=== PATIENT | female | born 1995 | race Hispanic/Latino ===

== ENCOUNTER 2019-04-24 14:05 | Emergency (ER) | payer OTHER ==
[2019-04-24 14:50] LABS: APPEARANCE,URINE Clear (CLEAR); BILIRUBIN,URINE Negative (NEGATIVE); COLOR,URINE Yellow (YELLOW); GLUCOSE, URINE (UA) Negative (NEGATIVE); KETONES,URINE Negative (NEGATIVE); LEUKOCYTE ESTERASE ,URINE Negative (NEGATIVE); NITRATE,URINE Negative (NEGATIVE); OCCULT BLOOD,URINE Trace (NEGATIVE); PROTEIN,URINE Negative (NEGATIVE); UROBILINOGEN,URINE 0.2 mg/dL (0.2-1.0)
[2019-04-24 14:51] LABS: HCG,QUAL RESULT NEGATIVE (NEGATIVE)
[2019-04-24 15:12] LABS: BACTERIA,URINE None Seen /HPF (None Seen); MUCUS,URINE None Seen LPF (None Seen); WBC,URINE 0-1 /HPF (0-1)
== END 2019-04-24 15:35 | disposition home or self-care (01) ==
LOC: EDH 14:05
DX: S33.5XXA Sprain of ligaments of lumbar spine, initial encounter (principal); X58.XXXA Exposure to other specified factors, initial encounter; Y93.89 Activity, other specified; Y92.89 Other specified places as the place of occurrence of the external cause; Y99.8 Other external cause status
CPT/HCPCS: 71046; 81001; 81025

== ENCOUNTER 2019-05-14 11:10 | Emergency (ER) | payer OTHER | END 2019-05-14 11:45 | disposition home or self-care (01) | LOC: EDH 11:10 | DX: B00.89 Other herpesviral infection (principal) ==

== ENCOUNTER → 2020-01-26 | Outpatient (CLI) | payer OTHER | END | disposition home or self-care (01) | LOC: RAH 12:56 | PROVIDERS: ATTEND Obstetrics & Gynecology | DX: Z34.01 Encounter for supervision of normal first pregnancy, first trimester (principal); Z3A.14 14 weeks gestation of pregnancy | CPT/HCPCS: 76801 ==

== ENCOUNTER → 2020-02-23 | Outpatient (CLI) | payer OTHER ==
[2020-02-23 10:06] LABS: BASOPHILS % (AUTO) 0.2 % (0.0-5.0); EOSINOPHILS % (AUTO) 0.9 % (0.0-8.0); HEMATOCRIT 35.6 % (36-48); LYMPHOCYTES % (AUTO) 26.9 % (21.0-51.0); MEAN CORPUSCULAR HEMOGLOBIN 28.6 pg (27.0-33.0); MEAN CORPUSCULAR HGB CONC 34.3 g/dL (32.0-36.0); MEAN CORPUSCULAR VOLUME 83.4 fL (79-99); MONOCYTES % (AUTO) 4.3 % (3.0-13.0); NEUTROPHILS % (AUTO) 67.5 % (40.0-77.0); PLATELET COUNT (AUTO) 180 K/uL (130-400); RED BLOOD CELL COUNT(AUTO) 4.27 MIL/uL (4.00-5.50); RED CELL DISTRIBUTION WIDTH 12.3 % (11.0-15.5); WHITE BLOOD COUNT (AUTO) 6.5 K/uL (4.8-10.8)
[2020-02-23 10:12] LABS: AMPHET/METH SCREEN,URINE NEGATIVE (NEGATIVE); BARBITURATE SCREEN, URINE NEGATIVE (NEGATIVE); BENZODIAZEPINES SCREEN,URINE NEGATIVE (NEGATIVE); CANNABINOID SCREEN,URINE NEGATIVE (NEGATIVE); COCAINE SCREEN,URINE NEGATIVE (NEGATIVE); OPIATE SCREEN,URINE NEGATIVE (NEGATIVE); PHENCYCLIDINE SCREEN,URINE NEGATIVE (NEGATIVE)
[2020-02-23 11:01] LABS: RAPID PLASMA REAGIN NONREACTIVE (NONREACTIVE)
== END | disposition home or self-care (01) ==
LOC: RAH 08:11
PROVIDERS: ATTEND Obstetrics & Gynecology
DX: Z36.3 Encounter for antenatal screening for malformations (principal); O00.01 Abdominal pregnancy with intrauterine pregnancy; Z3A.12 12 weeks gestation of pregnancy
CPT/HCPCS: 36415; 76801; 80305; 85025; 86592; 86701; 86762; 86850; 86900; 86901; 87088; 87390

== ENCOUNTER 2020-02-27 09:21 | Emergency (ER) | payer OTHER ==
[2020-02-27 09:51] LABS: BASOPHILS % (AUTO) 0.3 % (0.0-5.0); EOSINOPHILS % (AUTO) 0.9 % (0.0-8.0); HEMATOCRIT 36.9 % (36-48); LYMPHOCYTES % (AUTO) 25.4 % (21.0-51.0); MEAN CORPUSCULAR HEMOGLOBIN 28.7 pg (27.0-33.0); MONOCYTES % (AUTO) 4.8 % (3.0-13.0); NEUTROPHILS % (AUTO) 68.3 % (40.0-77.0); PLATELET COUNT (AUTO) 202 K/uL (130-400); RED CELL DISTRIBUTION WIDTH 12.1 % (11.0-15.5); WHITE BLOOD COUNT (AUTO) 7.6 K/uL (4.8-10.8)
[2020-02-27 10:13] LABS: CREATININE 0.7 mg/dL (0.5-1.5); POTASSIUM 3.8 mmol/L (3.5-5.1)
[2020-02-27 10:27] LABS: APPEARANCE,URINE Clear (CLEAR); BILIRUBIN,URINE Negative (NEGATIVE); COLOR,URINE Yellow (YELLOW); GLUCOSE, URINE (UA) Negative (NEGATIVE); KETONES,URINE Negative (NEGATIVE); LEUKOCYTE ESTERASE ,URINE Negative (NEGATIVE); NITRATE,URINE Negative (NEGATIVE); OCCULT BLOOD,URINE Nonhemolyzed Trace (NEGATIVE); PH,URINE 7.5 (5.0-8.0); PROTEIN,URINE Negative (NEGATIVE)
[2020-02-27 10:47] LABS: ALBUMIN 3.2 g/dL (3.5-5.0); BILIRUBIN,TOTAL 0.3 mg/dL (0.2-1.0)
[2020-02-27 10:52] LABS: BACTERIA,URINE None Seen /HPF (None Seen); RBC,URINE 0-1 /HPF (0-1); WBC,URINE None Seen /HPF (0-1)
== END 2020-02-27 11:46 | disposition home or self-care (01) ==
LOC: EDH 09:21
DX: O20.0 Threatened abortion (principal); Z79.899 Other long term (current) drug therapy; Z87.891 Personal history of nicotine dependence; Z3A.13 13 weeks gestation of pregnancy
CPT/HCPCS: 36415; 76801; 80053; 81001; 84702; 85025

== ENCOUNTER 2020-08-22 01:24 | Inpatient (IN) | payer OTHER ==
[~2020-08-22] VITALS: Ht 165.1 cm; Wt 90.7 kg
[2020-08-22] MEDS ORDERED: LACTATED RINGERS 1000ML 1,000 ML IV SCH (02:45)
[2020-08-22] MEDS ORDERED: NALOXONE HCL 0.4 MG/1 ML ML IV PRN (03:15)
[2020-08-22] MEDS ORDERED: EPHEDRINE SULFATE 50 MG/ML AMPULE IVP PRN (03:15)
[2020-08-22] MEDS ORDERED: OXYTOCIN-LR 20 UNITS/1000 ML 1,000 ML IV SCH (03:15)
[2020-08-22] MEDS ORDERED: BUTORPHANOL TARTRATE 2 MG/ML IVP PRN (03:15)
[2020-08-22] MEDS ORDERED: LACTATED RINGERS 500 ML 500 ML IV PRN (03:15)
[2020-08-22] MEDS ORDERED: BUTORPHANOL TARTRATE 2 MG/ML ONE (03:16)
[2020-08-22 03:47] LABS: HEMATOCRIT 35.2 % (36-48); MEAN CORPUSCULAR HEMOGLOBIN 28.6 pg (27.0-33.0); MEAN CORPUSCULAR HGB CONC 33.8 g/dL (32.0-36.0); MEAN CORPUSCULAR VOLUME 84.6 fL (79-99); RED BLOOD CELL COUNT(AUTO) 4.16 MIL/uL (4.00-5.50); RED CELL DISTRIBUTION WIDTH 13.9 % (11.0-15.5); WHITE BLOOD COUNT (AUTO) 9.9 K/uL (4.8-10.8)
[2020-08-22 03:48] VITALS: BP 119/72
[2020-08-22] MEDS ORDERED: FENTANYL CITRATE PF 50 MCG/1 ML 2ML VIAL ONE ×2 (06:20→07:42)
[2020-08-22 08:12] LABS: RAPID PLASMA REAGIN NONREACTIVE (NONREACTIVE)
[2020-08-22] MEDS ORDERED: LANOLIN 30GM OINTMENT TP PRN (11:15)
[2020-08-22] MEDS ORDERED: ACETAMINOPHEN-CODEINE 300/30MG TAB PO PRN (11:15)
[2020-08-22] MEDS ORDERED: DIPH,PERTUSS(ACELL),TET VAC/PF 0.5 ML VIAL IM PRN (11:15)
[2020-08-22] MEDS ORDERED: ACETAMINOPHEN 325 MG TAB PO PRN (11:15)
[2020-08-22] MEDS ORDERED: WITCH HAZEL 1 PAD TP PRN (11:15)
[2020-08-22] MEDS ORDERED: MEASLES/MUMPS/RUBELLA VACCINE, LIVE 0.5 ML/VIAL SQ PRN (11:15)
[2020-08-22] MEDS ORDERED: BENZOCAINE/LANOLIN/ALOE VERA 60 ML AEROSOL TP PRN (11:15)
[2020-08-22 14:21] VITALS: BP 111/65
[2020-08-22] MEDS: IBUPROFEN 600 MG TABLET PO PRN ×2 (14:30→22:04)
[2020-08-22 16:00] VITALS: BP 119/81
[2020-08-22] MEDS ORDERED: PREN1TAB63 PO (18:39)
[2020-08-22] MEDS ORDERED: VALA500T PO (18:39)
[2020-08-22 20:35] VITALS: BP 116/61
[2020-08-22] MEDS: DOCUSATE SODIUM 100 MG CAP PO SCH (21:09)
[2020-08-23 00:18] VITALS: BP 102/67
[2020-08-23 04:22] VITALS: BP 115/68
[2020-08-23 07:17] VITALS: BP 106/69
[2020-08-23] MEDS: DOCUSATE SODIUM 100 MG CAP PO SCH (08:26)
[2020-08-23] MEDS: IBUPROFEN 600 MG TABLET PO PRN (08:27)
[2020-08-23 11:35] VITALS: BP 108/60
[2020-08-23 16:23] VITALS: BP 133/80
[2020-08-24 05:12] LABS: HEPATITIS Bs ANTIGEN SCREEN P Negative (Negative)
== END 2020-08-23 16:25 | disposition home or self-care (01) | DRG 807 ==
LOC: EDH 01:40 → UNDOADMOB 01:53 → LDH 01:53 → INTOOBSV 01:53 → OBSVTOIN 01:53 → LDH 03:00 → OBSVTOIN 03:00 → WSH 14:10
PROVIDERS: ADMIT Obstetrics & Gynecology; ATTEND Obstetrics & Gynecology
PROC: 10E0XZZ Delivery of Products of Conception, External Approach (ICD-10-PCS; principal; 2020-08-22)
PROC: 0KQM0ZZ Repair Perineum Muscle, Open Approach (ICD-10-PCS; 2020-08-22)
PROC: 0UQMXZZ Repair Vulva, External Approach (ICD-10-PCS; 2020-08-22)
PROC: 3E0R3BZ Introduction of Anesthetic Agent into Spinal Canal, Percutaneous Approach (ICD-10-PCS; 2020-08-22)
PROC: 00HU33Z Insertion of Infusion Device into Spinal Canal, Percutaneous Approach (ICD-10-PCS; 2020-08-22)
DX: O70.1 Second degree perineal laceration during delivery (principal); Z37.0 Single live birth; Z3A.38 38 weeks gestation of pregnancy
CPT/HCPCS: 36415; 85027; 86592; 86701; 86850; 86900; 86901; 87340; 87390; A4314; G0378; J0595; J2590; J3010; J7120

== ENCOUNTER 2020-08-25 15:51 | Emergency (ER) | payer OTHER ==
[~2020-08-25] VITALS: Ht 165.1 cm; Wt 86.2 kg
[~2020-08-25 15:51] MED LIST: PREN1TAB63 PO; VALA500T PO
[2020-08-25 16:16] VITALS: BP 110/68
[2020-08-25 17:28] LABS: BASOPHILS % (AUTO) 0.1 % (0.0-5.0); EOSINOPHILS % (AUTO) 2.3 % (0.0-8.0); HEMATOCRIT 31.7 % (36-48); MEAN CORPUSCULAR HEMOGLOBIN 29.1 pg (27.0-33.0); MEAN CORPUSCULAR HGB CONC 32.8 g/dL (32.0-36.0); MEAN CORPUSCULAR VOLUME 88.5 fL (79-99); MONOCYTES % (AUTO) 5.8 % (3.0-13.0); NEUTROPHILS % (AUTO) 66.4 % (40.0-77.0); PLATELET COUNT (AUTO) 155 K/uL (130-400); RED BLOOD CELL COUNT(AUTO) 3.58 MIL/uL (4.00-5.50); RED CELL DISTRIBUTION WIDTH 13.8 % (11.0-15.5); WHITE BLOOD COUNT (AUTO) 7.3 K/uL (4.8-10.8)
[2020-08-25 17:36] VITALS: BP 122/72
[2020-08-25 17:40] LABS: CREATININE 0.7 mg/dL (0.5-1.5)
[2020-08-25 17:41] LABS: INR 0.94 (0.85-1.15); PROTHROMBIN TIME 10.3 SEC (9.6-11.6)
[2020-08-25 17:42] LABS: PARTIAL THROMBOPLASTIN TIME 24.7 SEC (26.3-35.5)
[2020-08-25 17:44] LABS: ALBUMIN 2.5 g/dL (3.5-5.0); BILIRUBIN,TOTAL 0.2 mg/dL (0.2-1.0); MAGNESIUM 1.5 mg/dL (1.80-2.40); TOTAL PROTEIN, SERUM 6.1 g/dL (6.0-8.3)
[2020-08-25 17:53] LABS: APPEARANCE,URINE Clear (CLEAR); BILIRUBIN,URINE Negative (NEGATIVE); COLOR,URINE Yellow (YELLOW); GLUCOSE, URINE (UA) Negative (NEGATIVE); KETONES,URINE Negative (NEGATIVE); LEUKOCYTE ESTERASE ,URINE Small (NEGATIVE); NITRATE,URINE Negative (NEGATIVE); OCCULT BLOOD,URINE Small (NEGATIVE); PH,URINE 5.5 (5.0-8.0); PROTEIN,URINE Negative (NEGATIVE)
[2020-08-25 17:58] VITALS: BP 113/79
[2020-08-25] MEDS ORDERED: PROCHLORPERAZINE EDISYLATE 10 MG/2 ML VIAL IV SCH (18:15)
[2020-08-25 18:24] LABS: BACTERIA,URINE Rare /HPF (None Seen); SQUAMOUS EPITHELIAL CELL,UR Rare /HPF (0-2)
[2020-08-25] MEDS ORDERED: MAGNESIUM 2GM PREMIX 50ML 25 ML IV SCH (18:30)
[2020-08-25 18:48] VITALS: BP 118/61
[2020-08-25 19:30] VITALS: BP 113/72
== END 2020-08-25 19:59 | disposition home or self-care (01) ==
LOC: EDH 15:51
DX: O72.1 Other immediate postpartum hemorrhage (principal); O90.89 Other complications of the puerperium, not elsewhere classified; E83.42 Hypomagnesemia; Z79.899 Other long term (current) drug therapy
CPT/HCPCS: 36415; 80053; 81001; 83735; 85025; 85610; 85730; 96365; 99285; J3475

== ENCOUNTER 2021-09-26 19:59 | Emergency (ER) | payer OTHER ==
[~2021-09-26] VITALS: Ht 165.1 cm; Wt 77.6 kg
[2021-09-26 20:02] VITALS: BP 133/81
[2021-09-26 20:32] LABS: BASOPHILS % (AUTO) 0.2 % (0.0-5.0); EOSINOPHILS % (AUTO) 0.3 % (0.0-8.0); HEMATOCRIT 38.3 % (36-48); LYMPHOCYTES % (AUTO) 17.6 % (21.0-51.0); MEAN CORPUSCULAR HEMOGLOBIN 27.9 pg (27.0-33.0); MEAN CORPUSCULAR HGB CONC 33.7 g/dL (32.0-36.0); MEAN CORPUSCULAR VOLUME 82.7 fL (79-99); MONOCYTES % (AUTO) 5.2 % (3.0-13.0); NEUTROPHILS % (AUTO) 76.5 % (40.0-77.0); PLATELET COUNT (AUTO) 221 K/uL (130-400); RED BLOOD CELL COUNT(AUTO) 4.63 MIL/uL (4.00-5.50); RED CELL DISTRIBUTION WIDTH 12.6 % (11.0-15.5); WHITE BLOOD COUNT (AUTO) 11.5 K/uL (4.8-10.8)
[2021-09-26 20:44] LABS: CREATININE 0.9 mg/dL (0.5-1.5); POTASSIUM 3.7 mmol/L (3.5-5.1)
[2021-09-26 20:49] LABS: ALBUMIN 3.5 g/dL (3.5-5.0); TOTAL PROTEIN, SERUM 7.5 g/dL (6.0-8.3)
[2021-09-26 20:51] LABS: APPEARANCE,URINE CLOUDY (CLEAR); BILIRUBIN,URINE NEGATIVE (NEGATIVE); COLOR,URINE ORANGE (YELLOW); GLUCOSE, URINE (UA) 100 mg/dL (NEGATIVE); KETONES,URINE NEGATIVE (NEGATIVE); LEUKOCYTE ESTERASE ,URINE LARGE (NEGATIVE); NITRATE,URINE POSITIVE (NEGATIVE); OCCULT BLOOD,URINE LARGE (NEGATIVE); PROTEIN,URINE >=300 mg/dL (NEGATIVE)
[2021-09-26 20:55] LABS: HCG,QUALITATIVE URINE NEGATIVE (NEGATIVE)
[2021-09-26] MEDS ORDERED: SULF1TAB42 PO (21:02)
[2021-09-26] MEDS ORDERED: PHEN-847 PO (21:02)
[2021-09-26 21:04] LABS: BACTERIA,URINE Few /HPF (None Seen); MUCUS,URINE None Seen LPF (None Seen); RBC,URINE 26-50 /HPF (0-1); SQUAMOUS EPITHELIAL CELL,UR Rare /HPF (0-2); WBC,URINE >100 /HPF (0-1)
== END 2021-09-26 21:31 | disposition home or self-care (01) ==
LOC: EDH 20:10
DX: N39.0 Urinary tract infection, site not specified (principal)
CPT/HCPCS: 36415; 80053; 81001; 81025; 85025; 87077; 87088; 87186

== ENCOUNTER 2022-01-30 10:33 | Emergency (ER) | payer OTHER ==
[~2022-01-30] VITALS: Ht 165.1 cm; Wt 80.3 kg
[~2022-01-30 10:33] MED LIST changes: +PHEN-847 PO; +SULF1TAB42 PO
[2022-01-30 11:02] LABS: BASOPHILS % (AUTO) 0.3 % (0.0-5.0); EOSINOPHILS % (AUTO) 0.8 % (0.0-8.0); HEMATOCRIT 38.7 % (36-48); LYMPHOCYTES % (AUTO) 39.8 % (21.0-51.0); MEAN CORPUSCULAR HEMOGLOBIN 27.9 pg (27.0-33.0); MEAN CORPUSCULAR HGB CONC 33.3 g/dL (32.0-36.0); MEAN CORPUSCULAR VOLUME 83.6 fL (79-99); MONOCYTES % (AUTO) 4.7 % (3.0-13.0); NEUTROPHILS % (AUTO) 54.2 % (40.0-77.0); PLATELET COUNT (AUTO) 208 K/uL (130-400); RED BLOOD CELL COUNT(AUTO) 4.63 MIL/uL (4.00-5.50); RED CELL DISTRIBUTION WIDTH 13.1 % (11.0-15.5); WHITE BLOOD COUNT (AUTO) 5.9 K/uL (4.8-10.8)
[2022-01-30 11:05] LABS: APPEARANCE,URINE CLEAR (CLEAR); BILIRUBIN,URINE NEGATIVE (NEGATIVE); COLOR,URINE LIGHT-YELLOW (YELLOW); GLUCOSE, URINE (UA) NEGATIVE (NEGATIVE); KETONES,URINE NEGATIVE (NEGATIVE); LEUKOCYTE ESTERASE ,URINE NEGATIVE Leu/uL (NEGATIVE); NITRATE,URINE NEGATIVE (NEGATIVE); PROTEIN,URINE NEGATIVE (NEGATIVE); UROBILINOGEN,URINE 0.2 mg/dL (0.2-1.0)
[2022-01-30 11:07] LABS: HCG,QUALITATIVE URINE NEGATIVE (NEGATIVE)
[2022-01-30 11:17] LABS: CREATININE 0.7 mg/dL (0.5-1.5); POTASSIUM 3.8 mmol/L (3.5-5.1)
[2022-01-30] MEDS ORDERED: GABA300C PO (11:17)
[2022-01-30] MEDS ORDERED: IBUP-1493 PO (11:17)
[2022-01-30 11:21] LABS: ALBUMIN 3.5 g/dL (3.5-5.0); TOTAL PROTEIN, SERUM 7.3 g/dL (6.0-8.3)
[2022-01-30 11:34] VITALS: BP 107/68
[2022-01-30 11:43] LABS: MUCUS,URINE RARE LPF (None Seen); WBC,URINE 0-1 /HPF (0-1)
== END 2022-01-30 11:38 | disposition home or self-care (01) ==
LOC: EDH 10:33
DX: R07.89 Other chest pain (principal); R06.02 Shortness of breath; F41.9 Anxiety disorder, unspecified; Z79.1 Long term (current) use of non-steroidal anti-inflammatories (NSAID)
CPT/HCPCS: 36415; 71045; 80053; 80061; 81001; 81025; 84484; 85025; 93005

== ENCOUNTER 2022-05-08 16:39 | Emergency (ER) | payer OTHER ==
[~2022-05-08] VITALS: Ht 165.1 cm; Wt 80.3 kg
[~2022-05-08 16:39] MED LIST changes: +GABA300C PO; +IBUP-1493 PO
[2022-05-08 17:37] VITALS: BP 113/66
[2022-05-08 18:16] LABS: BASOPHILS % (AUTO) 0.2 % (0.0-5.0); HEMATOCRIT 45.2 % (36-48); LYMPHOCYTES % (AUTO) 8.7 % (21.0-51.0); MEAN CORPUSCULAR HEMOGLOBIN 28.3 pg (27.0-33.0); MEAN CORPUSCULAR HGB CONC 33.4 g/dL (32.0-36.0); MEAN CORPUSCULAR VOLUME 84.6 fL (79-99); MONOCYTES % (AUTO) 1.7 % (3.0-13.0); NEUTROPHILS % (AUTO) 88.9 % (40.0-77.0); PLATELET COUNT (AUTO) 241 K/uL (130-400); RED BLOOD CELL COUNT(AUTO) 5.34 MIL/uL (4.00-5.50); RED CELL DISTRIBUTION WIDTH 12.6 % (11.0-15.5); WHITE BLOOD COUNT (AUTO) 10.9 K/uL (4.8-10.8)
[2022-05-08 18:27] LABS: CREATININE 0.9 mg/dL (0.5-1.5); POTASSIUM 4.1 mmol/L (3.5-5.1)
[2022-05-08 18:31] LABS: ALBUMIN 4.1 g/dL (3.5-5.0); TOTAL PROTEIN, SERUM 8.5 g/dL (6.0-8.3)
== END 2022-05-08 19:43 | disposition left against medical advice (07) ==
LOC: EDH 16:39
DX: R10.9 Unspecified abdominal pain (principal); Z53.21 Procedure and treatment not carried out due to patient leaving prior to being seen by health care provider
CPT/HCPCS: 36415; 80053; 85025

== ENCOUNTER → 2022-10-03 | Outpatient (CLI) | payer OTHER ==
[2022-10-03 11:02] LABS: BASOPHILS % (AUTO) 0.3 % (0.0-5.0); HEMATOCRIT 41.7 % (36-48); LYMPHOCYTES % (AUTO) 44.4 % (21.0-51.0); MEAN CORPUSCULAR HEMOGLOBIN 28.1 pg (27.0-33.0); MEAN CORPUSCULAR HGB CONC 33.3 g/dL (32.0-36.0); MEAN CORPUSCULAR VOLUME 84.4 fL (79-99); MONOCYTES % (AUTO) 5.4 % (3.0-13.0); NEUTROPHILS % (AUTO) 48.7 % (40.0-77.0); PLATELET COUNT (AUTO) 253 K/uL (130-400); RED BLOOD CELL COUNT(AUTO) 4.94 MIL/uL (4.00-5.50); RED CELL DISTRIBUTION WIDTH 12.8 % (11.0-15.5); WHITE BLOOD COUNT (AUTO) 6.1 K/uL (4.8-10.8)
[2022-10-03 11:23] LABS: ALBUMIN 3.8 g/dL (3.5-5.0); CREATININE 0.8 mg/dL (0.5-1.5); POTASSIUM 4.1 mmol/L (3.5-5.1); TOTAL PROTEIN, SERUM 7.8 g/dL (6.0-8.3)
== END | disposition home or self-care (01) ==
LOC: LAB 10:00
PROVIDERS: ATTEND Family Medicine
DX: E78.1 Pure hyperglyceridemia (principal); R53.83 Other fatigue
CPT/HCPCS: 36415; 80053; 80061; 85025

== ENCOUNTER 2022-10-24 08:52 | Emergency (ER) | payer OTHER ==
[~2022-10-24] VITALS: Ht 165.1 cm; Wt 74.8 kg
[2022-10-24 08:55] VITALS: BP 124/77; PULSE 79; RESP 16; O2SAT 98
[2022-10-24] MEDS ORDERED: BACITRACIN 1 EACH PACKET TP ONE (09:27)
[2022-10-24] MEDS ORDERED: TETANUS/DIPHTHERIA TOXOID [ADULT] 0.5 ML VIAL IM ONE (09:30)
[2022-10-24] MEDS ORDERED: BACI3.5O22 OP (09:52)
== END 2022-10-24 09:59 | disposition home or self-care (01) ==
LOC: EDH 08:52
DX: S60.812A Abrasion of left wrist, initial encounter (principal); S80.212A Abrasion, left knee, initial encounter; Z79.899 Other long term (current) drug therapy; W01.0XXA Fall on same level from slipping, tripping and stumbling without subsequent striking against object, initial encounter; Y93.89 Activity, other specified; Y92.89 Other specified places as the place of occurrence of the external cause; Y99.8 Other external cause status
CPT/HCPCS: 90471; 90714

== ENCOUNTER → 2023-02-28 | Outpatient (CLI) | payer OTHER ==
[~2023-02-28] MED LIST changes: +BACI3.5O22 OP
== END | disposition home or self-care (01) ==
LOC: LAB 11:34
PROVIDERS: ATTEND Obstetrics & Gynecology
DX: Z32.01 Encounter for pregnancy test, result positive (principal); R42 Dizziness and giddiness; R11.0 Nausea
CPT/HCPCS: 36415; 84702

== ENCOUNTER → 2023-05-11 | Outpatient (CLI) | payer OTHER ==
[2023-05-11 10:04] LABS: BASOPHILS # (AUTO) 0.02 K/uL (0.00-0.20); BASOPHILS % (AUTO) 0.4 % (0.0-5.0); EOSINOPHILS # (AUTO) 0.08 K/uL (0.00-0.70); EOSINOPHILS % (AUTO) 1.5 % (0.0-8.0); HEMATOCRIT 38.5 % (36-48); IMMATURE GRANULOCYTE ABSOLUTE 0.01 K/uL (0-1); LYMPHOCYTES # (AUTO) 2.4 K/uL (1.0-4.8); LYMPHOCYTES % (AUTO) 45.8 % (21.0-51.0); MEAN CORPUSCULAR HEMOGLOBIN 27.8 pg (27.0-33.0); MEAN CORPUSCULAR HGB CONC 33.2 g/dL (32.0-36.0); MEAN CORPUSCULAR VOLUME 83.5 fL (79-99); MONOCYTES # (AUTO) 0.2 K/uL (0.1-1.0); MONOCYTES % (AUTO) 4.4 % (3.0-13.0); NEUTROPHILS # (AUTO) 2.5 K/uL (1.8-7.7); NEUTROPHILS % (AUTO) 47.7 % (40.0-77.0); PLATELET COUNT (AUTO) 267 K/uL (130-400); RED BLOOD CELL COUNT(AUTO) 4.61 MIL/uL (4.00-5.50); RED CELL DISTRIBUTION WIDTH 13.2 % (11.0-15.5); WHITE BLOOD COUNT (AUTO) 5.2 K/uL (4.8-10.8)
[2023-05-11 10:25] LABS: ALBUMIN 3.7 g/dL (3.5-5.0); BILIRUBIN,TOTAL 0.3 mg/dL (0.2-1.0); CREATININE 0.8 mg/dL (0.5-1.5); POTASSIUM 4.4 mmol/L (3.5-5.1); THYROID STIMULATING HORMONE 0.63 uIU/mL (0.36-3.74); TOTAL PROTEIN, SERUM 7.5 g/dL (6.0-8.3)
[2023-05-11 11:08] LABS: ERYTHROCYTE SEDIMENTATION RATE 30 MM/HR (0-20)
[2023-05-13 15:10] LABS: RHEUMATOID ARTHRITIS FACTOR 10.3 IU/mL (<14.0)
== END | disposition home or self-care (01) ==
LOC: LAB 09:06
PROVIDERS: ATTEND Family Medicine
DX: L98.9 Disorder of the skin and subcutaneous tissue, unspecified (principal); M25.50 Pain in unspecified joint
CPT/HCPCS: 36415; 80053; 84439; 84443; 85025; 85651; 86038; 86140; 86200; 86215; 86235; 86431

== ENCOUNTER 2024-01-07 20:03 | Emergency (ER) | payer OTHER ==
[~2024-01-07] VITALS: Ht 165.1 cm; Wt 77.1 kg
[2024-01-07 20:29] LABS: ADD UA MICROSCOPIC YES; APPEARANCE,URINE CLEAR (CLEAR); BILIRUBIN,URINE NEGATIVE (NEGATIVE); COLOR,URINE LIGHT-YELLOW (YELLOW); GLUCOSE, URINE (UA) NEGATIVE (NEGATIVE); KETONES,URINE NEGATIVE (NEGATIVE); LEUKOCYTE ESTERASE ,URINE NEGATIVE Leu/uL (NEGATIVE); NITRATE,URINE NEGATIVE (NEGATIVE); OCCULT BLOOD,URINE NEGATIVE (NEGATIVE); PH,URINE 6.5 (5.0-8.0); PROTEIN,URINE NEGATIVE (NEGATIVE); UROBILINOGEN,URINE 0.2 mg/dL (0.2-1.0)
[2024-01-07 20:30] LABS: RBC,URINE 0-1 /HPF (0-1); WBC,URINE 0-1 /HPF (0-1)
[2024-01-07] MEDS: acetaMINOPHEN 500 MG TABLET PO ONE (20:33)
[2024-01-07 20:40] LABS: RAPID GROUP A STREP negative (NEGATIVE)
[2024-01-07 20:58] LABS: COVID19 (SARS ANTIGEN RAPID) PRESUMPTIVE NEGATIVE (NEGATIVE)
[2024-01-07 20:59] LABS: INFLUENZA TYPE B Negative For Type B (NEGATIVE)
[2024-01-07 21:09] LABS: INFLUENZA TYPE A Positive For Type A (NEGATIVE)
[2024-01-07] MEDS ORDERED: OSEL75 PO (21:25)
[2024-01-07] MEDS: OSELTAMIVIR PHOSPHATE 75 MG CAP PO ONE (21:37)
[2024-01-07 21:42] VITALS: BP 116/64; PULSE 88; RESP 16; TEMP 98.4; O2SAT 98
== END 2024-01-07 21:44 | disposition home or self-care (01) ==
LOC: EDH 20:03
DX: O26.892 Other specified pregnancy related conditions, second trimester (principal); J10.1 Influenza due to other identified influenza virus with other respiratory manifestations; R50.9 Fever, unspecified; Z79.1 Long term (current) use of non-steroidal anti-inflammatories (NSAID); Z79.624 Long term (current) use of inhibitors of nucleotide synthesis; Z79.899 Other long term (current) drug therapy; Z20.822 Contact with and (suspected) exposure to COVID-19
CPT/HCPCS: 81001; 87426; 87804; 87880